=== PATIENT | male | born 1965 | race Two or more races ===

== ENCOUNTER 2022-01-07 18:35 | Inpatient (IN) | payer OTHER ==
[~2022-01-07] VITALS: Ht 162.6 cm; Wt 97.5 kg
[2022-01-07] MEDS ORDERED: ZOVIRAX400 MG (20:09)
[2022-01-07] MEDS ORDERED: PANTOPRAZOLE SO40 M2 (20:10)
[2022-01-07] MEDS ORDERED: LYRICA300 MG (20:10)
[2022-01-07] MEDS ORDERED: ALTACE5 MG (20:11)
[2022-01-07] MEDS ORDERED: ISOSORBIDE MONO60 MG (20:11)
[2022-01-07] MEDS ORDERED: NITROGLYCERIN0.4 MG (20:11)
[2022-01-07] MEDS ORDERED: LASIX40 MG (20:12)
[2022-01-07] MEDS ORDERED: JARDIANCE25 MG (20:12)
[2022-01-07] MEDS ORDERED: PLAVIX75 MG (20:13)
[2022-01-07] MEDS ORDERED: ALDACTONE25 MG (20:13)
[2022-01-07] MEDS ORDERED: TRAZODONE 50 MG (20:14)
[2022-01-07] MEDS ORDERED: HUMULIN N100 UNIT/2 (20:15)
[2022-01-07] MEDS ORDERED: HUMULIN 70100 UNIT/2 (20:16)
--- NOTE | 2022-01-07 20:17 | NUR ---
PTE SE RECIBE POR FIEBRE Y DOLOR DE CUERPO REFIERE PTE.
--- NOTE | 2022-01-07 20:18 | NUR ---
PTE NOTIFICA QUE ES HIV.
--- NOTE | 2022-01-07 20:41 | NUR ---
PACIENTE EVALUADO POR DRA [place]DENA TX MEDICO, SE ORIENTA A PACIENTE SOBRE EL MISMO Y REFIERE ENTENDER. SE NOTIFICA A PERSONAL DE TERAPIA POR ABG PENDIENTE. SE REALIZA ESTUDIO DE GAGAN X POR PERSONAL DE TURNO.
--- NOTE | 2022-01-07 22:03 | NUR ---
SE ORIENTA A PACIENTE SOBRE NUEVO TRATAMIENTO MEDICO Y REFIERE ENTENDER, SE COLECTAN MUESTRAS DE LABORATORIO BAJO MEDIDAS ASEPTICAS.
== END 2022-01-08 15:00 | disposition left against medical advice (07) | DRG 976 ==
LOC: ER 18:35 → MEDJ 01-08 01:52
PROVIDERS: ADMIT Internal Medicine; ATTEND Internal Medicine
DX: U07.1 COVID-19 (principal); B20 Human immunodeficiency virus [HIV] disease; R09.02 Hypoxemia; R06.02 Shortness of breath; I10 Essential (primary) hypertension; E11.9 Type 2 diabetes mellitus without complications; Z79.4 Long term (current) use of insulin; J45.909 Unspecified asthma, uncomplicated; F17.200 Nicotine dependence, unspecified, uncomplicated; Z95.1 Presence of aortocoronary bypass graft

== ENCOUNTER 2024-02-07 09:08 | Outpatient (CLI) | payer OTHER ==
[~2024-02-07 09:08] MED LIST: ALDACTONE25 MG; ALTACE5 MG; HUMULIN 70100 UNIT/2; HUMULIN N100 UNIT/2; ISOSORBIDE MONO60 MG; JARDIANCE25 MG; LASIX40 MG; LYRICA300 MG; NITROGLYCERIN0.4 MG; PANTOPRAZOLE SO40 M2; PLAVIX75 MG; TRAZODONE 50 MG; ZOVIRAX400 MG
== END 2024-02-07 09:20 | disposition home or self-care (01) ==
LOC: TOM 09:08
PROVIDERS: ATTEND Internal Medicine Gastroenterology
DX: K56.609 Unspecified intestinal obstruction, unspecified as to partial versus complete obstruction (principal)

== ENCOUNTER → 2025-04-14 | Emergency (ER) | payer OTHER ==
[~2025-04-14] VITALS: Ht 162.6 cm; Wt 88.5 kg
[~2025-04-14] MED LIST changes: +KETOROLAC TROMETHAMINE 60 MG VIAL IM ONE; +NEURONTIN300 MG PO; +ORPHENADRINE CITRATE 30 MG/ML AMPUL IM ONE; +ORPHENADRINE CITRATE 30 MG/ML AMPUL ONE; +SEMAGLUTID0.25 MG/0.
== END | disposition home or self-care (01) ==
LOC: ER 22:31
DX: M54.2 Cervicalgia (principal); M54.50 Low back pain, unspecified; I10 Essential (primary) hypertension; E11.9 Type 2 diabetes mellitus without complications; Z79.4 Long term (current) use of insulin
CPT/HCPCS: 72125; 96372; 99284; J1885 ×2; J2360